=== PATIENT | female | born 1970 | race Caucasian/White ===

== ENCOUNTER → 2019-05-27 11:38 | Outpatient (CLI) | payer BC, SELFPAY ==
--- NOTE | ~2019-05-27 | MM_ITS ---
EXAMINATION: MM screening tamir BI w darlyn HISTORY: Screening mammogram TECHNIQUE: Craniocaudal and mediolateral oblique 3-D tomosynthesis images were obtained and synthetic 2-D images were generated. CAD analysis was submitted and interpreted. COMPARISON: No prior mammogram is available for comparison at this institution. BREAST PARENCHYMAL COMPOSITION: The breasts are almost entirely fatty. FINDINGS: There are 2 oval circumscribed up to approximately 6 and 9 mm masses in the axillary tail a chandan of the left breast, consistent with likely benign lymph nodes. There is no evidence of suspicious mass, calcification, or architectural distortion to suggest malignancy in either breast.. IMPRESSION: 1. No mammographic evidence of malignancy. 2. Recommend routine screening mammography in one year. BI-RADS Category 2: Benign finding(s). Reviewed, dictated and finalized at location A. ESSION CASHIER
--- NOTE | ~2019-05-27 | DEXA_ITS ---
Bone Density Report Name: Glenis August Age: 49 Sex: Female Ethnicity: White Date of : 1970 Indication: postmenopausal; screening for osteoporosis; height loss; Referring Provider: ACRLOS HERNANDEZ Study: Bone densitometry was performed. Exam Date: May 27, 2019 Accession number: [id number] Bone Density: Region BMD T-score Z-score Classification AP Spine (L1-L4) 1.210 1.5 2.2 Normal Femoral Neck (Left) 0.748 -0.9 -0.2 Normal Total Hip (Left) 1.085 1.2 1.6 Normal Femoral Neck (Right) 0.809 -0.4 0.4 Normal Total Hip (Right) 1.055 0.9 1.4 Normal Total Hip Mean 1.070 1.1 1.5 Normal World Health Organization criteria for BMD impression classify patients as: Normal (T-score at or above -1.0), Osteopenia (T-score between -1.0 and -2.5), or Osteoporosis (T-score at or below -2.5). 10-year Fracture Risk: FRAX not reported because: All T-scores for Spine Total, Hip Total, Femoral Neck at or above -1.0 Clinical Information Provided by Patient: Smokes Has used the following medications: Calcium Patient maximum height was 67 Menopause Age: 43 No regular weight bearing exercise Drinks caffeinated beverages Onset of menses at age 11 Number of children 3 Impression: The patient has normal bone mass. The patient has risk factors, including: smoking. Discussion: BONE DENSITY IS ABOVE THE MINIMUM DESIRABLE LEVEL AT ALL SKELETAL SITES TESTED. This patient?s bone mineral density is above the minimum desirable level (T-score -1.0 or better) at all sites measured. The patient should follow a healthful lifestyle (good nutrition with adequate calcium and vitamin D, and appropriate weight-bearing exercise). Follow-Up: Consider repeating this study in 5 years or sooner if there is some new clinical indication. Reported by: TAMMY on 05/27/2019 12:06:00 PM. Reviewed, dictated and finalized at location AS[facility] VELARDE
== END ==
PROVIDERS: Visit Provider Obstetrics & Gynecology
DX: Z12.31 Encounter for screening mammogram for malignant neoplasm of breast (principal); Z78.0 Asymptomatic menopausal state
CPT/HCPCS: 77063; 77067; 77080

== ENCOUNTER 2020-12-11 08:11 | Emergency (ER) | payer BC, SELFPAY ==
--- NOTE | ~2020-12-11 | XR_ITS ---
EXAMINATION: XR knee RT min 4V EXAM DATE: 12/11/2020 08:50 INDICATION: KNI. LAT PAIN/SWELLING X 4 DAYS. TECHNIQUE: Right knee frontal, crosstable lateral, orthogonal oblique projections for interpretation . There is no prior study for comparison. FINDINGS: No evidence osteochondral defect or joint body in the right knee joint. There are no acut e fractures or dislocations identified. There is no subcutaneous gas. There may be some swelling ov er the knee laterally. There are no radiopaque foreign bodies. Joint space maintained. No appreciab le bony productive change. IMPRESSION: 1. Soft tissue swelling laterally. Reviewed, dictated and finalized at location B.
--- NOTE | 2020-12-11 08:13 | ED.LOWEXIN ---
HPI - Extremity Injury (Lower) General Chief Complaint: Extremity Injury, Lower Stated Complaint: Possible injury to right Knee Time Seen by Provider: 12/11/20 08:13 Source: patient and RN notes reviewed History of Present Illness HPI Narrative: Patient is a 50-year-old female who presents the urgent care with complaints of right knee pain. Patient states that it started on and she is having more increased pain with weightbearing. Patient states that her PCP was wanting an x-ray. Patient denies of any injury or trauma. No other acute complaints. No acute distress noted. Patient aware of the plan of care. Some parts of this dictation were generated by voice recognition software and may contain typographical and/or grammatical inaccuracies. Related Data Home Medications Medication Instructions Recorded Confirmed cyclobenzaprine 10 mg PO TID PRN 12/11/20 12/11/20 erenumab-aooe [Aimovig 70 mg SUBCUT MONTHLY 12/11/20 12/11/20 Autoinjector] hydroxyzine HCl 50 mg PO TID 12/11/20 12/11/20 lorazepam 1 mg PO DAILY 12/11/20 12/11/20 rizatriptan 10 mg PO Q2H PRN 12/11/20 12/11/20 sertraline 50 mg PO DAILY 12/11/20 12/11/20 topiramate 25 mg PO BID 12/11/20 12/11/20 zolpidem 12.5 mg PO DAILY 12/11/20 12/11/20 Allergies Allergy/AdvReac Type Severity Reaction Status Date / Time No Known Allergies Allergy Verified 12/11/20 08:45 Review of Systems Review of Systems: CONSTITUTIONAL: Denies fever, chills, or sweats. EYES: Denies visual changes, redness, or discharge. ENT: Denies rhinorrhea, congestion, sore throat, or otalgia. CARDIOVASCULAR: Denies chest pain, palpitations, or edema. RESPIRATORY: Denies cough or dyspnea. GASTROINTESTINAL: Denies abdominal pain, nausea, vomiting, or diarrhea. GENITOURINARY: Denies dysuria or hematuria. SKIN: Denies rash or itching. MUSCULOSKELETAL: Reports of right knee pain NEUROLOGIC: Denies headache, numbness, or weakness. All other systems reviewed are negative, except as documented in HPI. PMFSH Comments At the time of my signature, I reviewed and agree with the nursing past medical, surgical, social, and family history. There is no relevant family history pertinent to the patient complaint. Exam Narrative: GENERAL: This is a well-nourished, well-developed patient, in no apparent distress. HEAD: normocephalic, atraumatic. EYES: PERRL. Sclera clear/white. Vision is grossly intact. EARS: External ears normal NOSE: External nose normal with no obvious nasal discharge, nares without redness, no rhinorrhea. THROAT: Mucous membranes moist NECK: Neck supple CARDIOVASCULAR: Regular rate and rhythm without murmurs, gallops, or rubs. RESPIRATORY: Clear to auscultation. Breath sounds equal bilaterally. No wheezes, rales, or rhonchi. SKIN: warm, intact with no suspicious lesions or rash, good texture and turgor. NEURO: awake, alert, and oriented to person, place and time. There were no obvious focal neurologic abnormalities. EXTREMITIES: No notable edema, ecchymosis or erythema noted to the right knee. Moderate tenderness to the lateral aspect of the right knee with notable cluster of varicose veins. No Segura's cyst. Drawer test negative. Positive strong right pedal pulse with capillary refill less than 2 seconds. Pain exacerbated with weightbearing. Range of motion within normal limits. Course Vital Signs Vital signs: Vital Signs Temperature 97.6 F 12/11/20 08:17 Pulse Rate 88 12/11/20 08:17 Respiratory Rate 20 12/11/20 08:17 Blood Pressure 106/52 L 12/11/20 08:17 Pulse Oximetry 100 12/11/20 08:17 Temperature 97.6 F 12/11/20 08:17 Pulse Rate 88 12/11/20 08:17 Respiratory Rate 20 12/11/20 08:17 Blood Pressure 106/52 L 12/11/20 08:17 Pulse Oximetry 100 12/11/20 08:17 Reviewed MDM - Extremity Injury (Lower) MDM Narrative Medical decision making narrative: Reviewed x-ray results with the patient. However there is no fracture, dislocation or defo
[2020-12-11 08:17] VITALS: BP 106/52; PULSE 88; RESP 20; TEMP 36.4; O2SAT 100
== END 2020-12-11 09:13 | disposition home or self-care (01) ==
PROVIDERS: Emergency Provider Nurse Practitioner Family; PCP Family Medicine
DX: I83.91 Asymptomatic varicose veins of right lower extremity (principal); Z98.84 Bariatric surgery status; F41.9 Anxiety disorder, unspecified; F32.9 Major depressive disorder, single episode, unspecified
CPT/HCPCS: 73564; 99213; G0463